=== PATIENT | female | born 1985 | race Caucasian/White ===

== ENCOUNTER 2018-08-05 16:02 | Emergency (ER) | payer MEDICAID, SELFPAY ==
[2018-08-05 16:03] VITALS: BP 162/81; PULSE 91; RESP 17; TEMP 36.6; O2SAT 97; BMI 36.1
--- NOTE | 2018-08-05 16:21 | EKG12_ITS ---
Test Reason : CP Blood Pressure : / mmHG Vent. Rate : 090 BPM Atrial Rate : 090 BPM P-R Int : 144 ms QRS Dur : 078 ms QT Int : 390 ms P-R-T Axes : 031 056 036 degrees QTc Int : 477 ms Normal sinus rhythm Normal ECG Confirmed by CHEVY TOUSSAINT, DARCY ([id number]), art editor EDITH CHOPRA ([id number]) on 08/07/2018 2:14:11 PM Referred By: CITLALI Confirmed By:ADRCY REECE MD
--- NOTE | 2018-08-05 16:30 | ED.VISSUMM ---
- ER Visit Summary Date of Service: 08/05/18 Chief Complaint: Chest pain History of Present Illness: The patient is a 33 F presenting with chest pain. Patient states this started 2 days ago. Pain was initially intermittent but has been constant since this morning. She has mild cough. She denies fever. She denies PE/DVT risk factors. She is a smoker. Denies other CAD risk factors. Her from an MS in March 2018. Physical Examination: Vitals are stable. Patient is afebrile. Alert no acute distress. HEENT exam is unremarkable. Neck is supple. Lungs are clear and equal bilaterally. Heart is regular rate and rhythm. Abdomen is soft nontender nondistended. Extremities are unremarkable. Skin is warm and dry. No focal neurologic deficit. Remainder of exam is unremarkable. Emergency Department Course and Treatment: Patient was given aspirin on arrival. EKG is sinus rhythm rate of 90 with no acute ischemic changes. Chest x-ray shows no acute process. CBC, chemistries unremarkable. Troponin is negative. She was given a GI cocktail. Delta troponin was obtained and is negative. On reevaluation, patient is resting comfortably. She is advised to follow-up with her primary care physician. Advised return to ED for worsening complaints. Disposition: Discharge home Impression: Atypical chest pain This note was generated with [employer] dictation software. It may contain incorrect words, spelling, and punctuation that were not noted in review of the chart prior to signing ED Disposition - Plan for ED Patient: Instructions: ED Chest Pain Atypical Unkn Cause Referrals: Shelia Souza MD [Primary Care Provider] -
--- NOTE | 2018-08-05 16:35 | RAD_ITS ---
STUDY: X-RAY CHEST REASON FOR EXAM: Female, 33 years old. Chest pain TECHNIQUE: Portable chest COMPARISON: None. FINDINGS: The lungs are clear and expanded. There is no demonstrated pleural abnormality. Normal size heart. Normal mediastinum and vicente. Normal visualized pulmonary arteries. Normal visualized aortic arch and descending thoracic aorta. Normal visualized thoracic spine. Normal visualized ribs, clavicles, and shoulders. There is no demonstrated abnormality of the visualized soft tissue structures of the upper abdomen. RAD/Chest 1 View (Portable) IMPRESSION: Normal x-ray examination of the chest. Electronically Signed: Willie Castillo, at 17:09 EST Tel , Service support ,
[2018-08-05] MEDS: Aspirin 81 MG TAB.CHEW 324 MG PO (16:42)
[2018-08-05 16:48] LABS: Absolute Lymphocyte Count 2.09 X10^3/ul (0.83-4.51); Absolute Neutrophil Count 5.2 X10^3/uL (2.0-7.7); Basophil# 0.02 X10^3/uL; Basophil% 0.3 % (0-1); Eosinophil# 0.21 X10^3/uL; Eosinophils% 2.6 % (0-5); Hematocrit 39.5 % (37-47); Hemoglobin 12.6 g/dl (12.0-15.0); Lymphocyte # 2.09 X10^3/ul (4.0); Lymphocyte % 26.1 % (19-41); Mean Corp Hgb Conc 31.9 g/gl (32-36); Mean Corpuscular Hgb 28.3 pg (27.0-32.0); Mean Corpuscular Volume 88.8 fL (81-99); Monocyte# 0.43 X10^3/uL; Monocyte% 5.4 % (0-10); Neutrophil # 5.24 X10^3/uL (2.7-7.7); Neutrophil % 65.5 % (47-70); Platelet Count 245 K/mm3 (150-450); RBC Distribution Width CV 15.4 % (11.6-14.6); Red Blood Count 4.45 M/mm3 (4.2-5.4)
[2018-08-05 16:49] LABS: POSITIVE COUNT NO; POSITIVE DIFFERENTIAL NO; POSITIVE MORPHOLOGY NO
[2018-08-05 17:06] LABS: Anion Gap 4 (5-15); BUN 9 mg/dL (7-18); BUN/Creat Ratio 8.6 RATIO (10-20); Calcium,Total 8.9 mg/dL (8.5-10.1); Chloride 111 mmol/L (98-107); Creatinine, Serum 1.05 mg/dL (0.55-1.02); EST Glomerular Filtration Rate 64 mL/min (>60); Est Glom Filt Rate - Afr Amer 78 mL/min (>60); Estimated Creatinine Clearance 57.51 ml/min; Glucose 90 mg/dL (74-106); Potassium 3.9 mmol/L (3.5-5.1); Sodium Level 140 mmol/L (136-145)
[2018-08-05] MEDS: Mag Hydrox/Al Hydrox/Simeth 30 ML UDC PO (17:36)
[2018-08-05 18:02] VITALS: BP 117/71; PULSE 77; RESP 23; O2SAT 96
[2018-08-05 19:06] VITALS: BP 109/67; PULSE 71; RESP 17; O2SAT 97
--- NOTE | 2018-08-05 20:14 | ED.DEP ---
ED Disposition - Plan for ED Patient: Instructions: ED Chest Pain Atypical Unkn Cause Referrals: Shelia Souza MD [Primary Care Provider] -
[2018-08-05 20:34] VITALS: BP 125/76; PULSE 83; RESP 24; O2SAT 96
== END 2018-08-05 20:35 | disposition home or self-care (01) ==
LOC: ED 16:27
PROVIDERS: Emergency Provider Emergency Medicine; Family Provider Internal Medicine; PCP Internal Medicine
DX: R07.89 Other chest pain (principal); R05 Cough; F17.200 Nicotine dependence, unspecified, uncomplicated; Z79.899 Other long term (current) drug therapy
CPT/HCPCS: 71045; 80048; 84484; 85025; 93005; 99285; A4216

== ENCOUNTER → 2024-02-22 | Outpatient (CLI) | payer BC, SELFPAY ==
[2024-02-22 11:26] LABS: Platelet Count 274 K/mm3 (150-450); RET-HE 31.3 pg (30-35); Reticulocyte Count 1.32 % (0.5-1.5)
[2024-02-22 11:27] LABS: Erythrocyte Sedimentation Rate 8 mm/hr (0-30)
[2024-02-22 11:54] LABS: CRP 5.26 mg/L (0.0-3.0); Ferritin 8 ng/mL (8-252); Iron Binding Capacity,Total 393 ug/dL (250-450); LDH 172 U/L (84-246)
[2024-02-25 16:09] LABS: Anti-Centromere B Ab <0.2 AI (0.0-0.9); Anti-Chromatin <0.2 AI (0.0-0.9); Anti-Jo <0.2 AI (0.0-0.9); Anti-Scleroderma-70 AB <0.2 AI (0.0-0.9); Anti-dsDNA Ab <1 IU/mL (0-9); Beef <0.10 kU/L (Class 0); Chocolate <0.10 kU/L (Class 0); Codfish <0.10 kU/L (Class 0); Corn <0.10 kU/L (Class 0); Egg, Whole <0.10 kU/L (Class 0); Milk (Cow) <0.10 kU/L (Class 0); Mussels <0.10 kU/L (Class 0); Peanut <0.10 kU/L (Class 0); Pork <0.10 kU/L (Class 0); RNP Ab <0.2 AI (0.0-0.9); SJOGREN'S Anti-SS-A test < 0.2 AI (0.0-0.9); SJOGREN'S Anti-SS-B test < 0.2 AI (0.0-0.9); Salmon <0.10 kU/L (Class 0); Shrimp <0.10 kU/L (Class 0); Smith Ab <0.2 AI (0.0-0.9); Soybean <0.10 kU/L (Class 0); Tuna <0.10 kU/L (Class 0); Wheat <0.10 kU/L (Class 0)
[2024-02-28 10:10] LABS: ACCA 18 units (0-90); ALCA 17 units (0-60); AMCA 7 units (0-100); Albumin 3.9 g/dL (2.9-4.4); Alpha-1-Globulins 0.2 g/dL (0.0-0.4); Alpha-2-Globulins 0.8 g/dL (0.4-1.0); Cytoplasmic Ab (C-ANCA) <1:20 titer (Neg:<1:20); Endomysial Antibody IgA Negative (Negative); Gamma Globulin 0.9 g/dL (0.4-1.8); Haptoglobin 177 mg/dL (33-278); Immunoglobulin A 138 mg/dL (87-352); Immunoglobulin E 9 IU/mL (6-495); Immunoglobulin G 890 mg/dL (586-1602); Immunoglobulin M 110 mg/dL (26-217); PROEL- TOTAL PROTEIN 6.8 g/dL (6.0-8.5); Perinuclear Ab (P-ANCA) <1:20 titer (Neg:<1:20); gASCA 18 units (0-50); t-Transglutaminase IgA <2 U/mL (0-3)
== END | disposition home or self-care (01) ==
LOC: LAB 10:10
PROVIDERS: PCP Student in an Organized Health Care Education/Training Program
DX: D50.9 Iron deficiency anemia, unspecified (principal); E07.9 Disorder of thyroid, unspecified; K62.5 Hemorrhage of anus and rectum
CPT/HCPCS: 36415; 82728; 82784; 82785; 83010; 83516; 83550; 83615; 84165; 85045; 85652; 86003; 86005; 86036; 86140; 86225; 86235; 86255; 86256; 86334; 86671

== ENCOUNTER 2024-03-14 10:57 | Day surgery (SDC) | payer BC, SELFPAY ==
[2024-03-14] VITALS (9 sets, daily range): BP systolic 84–100; BP diastolic 50–70; PULSE 46–67; RESP 16–20; TEMP 36.3–36.6; O2SAT 97–100; BMI 32.5
--- NOTE | 2024-03-14 11:52 | PRE.ANES_ITS ---
ASA Classification* ASA Classification ASA Classification: 2 Assessment & Plan Anesthesia* Anesthesia Assessment Anesthesia Assessment: Discussed sedation and/or anesthesia options, risks, benefits, and alternatives with patient/parents/legal guardian/POA. Questions invited. The patient/parents/legal guardian/POA seems to understand and agrees to proceed with anesthesia plan. Reviewed the physical assessment, medical history, allergy history and patient home medications list prior to surgery/procedure/anesthetic and documented any changes. Performed airway and anesthesia risk assessments. Anesthesia Type Anesthesia Type: MAC History Source History Obtained from:: Patient and Chart Anesthesia Focused Assessment* Temperature: 97.3 F Pulse Rate: 63 Blood Pressure: 100/70 Respiratory Rate: 16 Pulse Ox: 99 Oxygen Delivery Method: Room Air Airway Assessment Mouth opens: >3 cm Mallampati Score: I Teeth Condition: Caps/Crowns (Patient has crowns on front top 6 incisors. All tight.) Neck Range of motion (ROM): Full ROM Focused Labs Anesthesia Preop lab: CBC WBC 8.0 K/mm3 (4.4-11.0) 08/05/18 16:40 RBC 4.45 M/mm3 (4.2-5.4) 08/05/18 16:40 Hgb 12.6 g/dl (12.0-15.0) 08/05/18 16:40 Hct 39.5 % (37-47) 08/05/18 16:40 Plt Count 245 K/mm3 (150-450) 08/05/18 16:40 CHEMISTRY Potassium 3.9 mmol/L (3.5-5.1) 08/05/18 16:40 Sodium 140 mmol/L (136-145) 08/05/18 16:40 BUN 9 mg/dL (7-18) 08/05/18 16:40 Creatinine 1.05 mg/dL (0.55-1.02) H 08/05/18 16:40 Glucose 90 mg/dL (74-106) 08/05/18 16:40 COAG HCG, Quant 96245 mIU/mL (<9 non-preg) H 01/30/12 11:50 Urine Test Pending 03/14/24 11:20 Pre-Assessment Diagnosis/Proposed Procedure Planned Operative Procedure(s): CSCOPE Anesthesia History 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 When Was Last Pacemaker Check QUESTION #4 FULL TEXT: You/Your Family Experience fever (hyperthermia) with Anesthesia Last Oral Intake Last Oral intake: Last Oral Intake NPO since Meds taken in AM with sips of water? Meds patient instructed to take am of surgery Any additional information?: Yes NPO since: 09:00 (Patient finished prep at 9 AM.) PONV PONV - simplex printer installer: PONV - simplex printer installer Female Yes 03/08/24 10:30 HX of Motion Sickness No 03/08/24 10:30 HX of N/V After Surgery No 03/08/24 10:30 Non-Smoker No 03/08/24 10:30 Duration of Surgery greater No 03/08/24 10:30 than 60 minutes Number of Risk Factors 1 03/08/24 10:30 PONV Score Low Risk 03/08/24 10:30 Height & Weight Height & Weight: Anesthesia: Height & Weight Height 5 ft 1 in 03/14/24 11:24 Weight: 78 kg 03/14/24 11:24 Body Mass Index (BMI) 32.5 03/14/24 11:24 Respiratory Assessment Respiratory Assessment - simplex printer installer: Respiratory Tract Infection Hx - simplex printer installer Hx Respiratory Tract Infection No 03/08/24 10:30 STOP Sleep Apnea STOP Sleep Apnea - simplex printer installer: STOP Sleep Apnea - simplex printer installer Hx Hypertension No 03/08/24 10:30 Hx Sleep Apnea No 03/08/24 10:30 CPAP BIPAP Do you snore loudly (louder No 03/08/24 10:30 than talking or can be heard Do you often feel tired/ Yes 03/08/24 10:30 fatigued/ sleepy during daytime? Has anyone observed you stop No 03/08/24 10:30 breathing during sleep? STOP Results Negative 03/08/24 10:30 QUESTION #5 FULL TEXT : Do you snore loudly (louder than talking or can be heard through closed doors)? 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 Specify any problems Hx of Preganancy in last 3 No 03/08/24 10:30 Months Nurse Filling Out Transfusion DSCHRIBER 03/08/24 10:30 & Questions: Date: 03/08/24 03/08/24 10:30 Time: 10:32 03/08/24 10:30 Patient unable to answer at this time (ie. confused, unrespo /Reproduction History /Reproductive History - simplex printer installer: /Reproductive Hx- simplex printer installer Hx Now No 03/08/24 10:30 Gestational Age (in weeks): EDC: Hx Hx Para Hx Section SAB No 03/08/24 10:30 [facility] Medical History (Updated 03/08/24 @ 10:39 by Joan Donald) Low iron Easy bruising Restless legs Heartburn Smoker Shortness of breath on exertion History of edema History of echocardiogram History of stress test History of irregular heartbeat Katie's thyroiditis Vitamin D deficiency Rectal bleeding Iron deficiency anemia ADHD Concentration deficit ROSA (generalized anxiety disorder) Major depressive disorder Thyroid disease Home Medications ?Medication ?Instructions ?Recorded ?Last Taken ?Type levothyroxine 75 mcg tablet 75 mcg PO DAILY 08/03/22 Unknown History fluoxetine 40 mg capsule 40 mg PO DAILY #90 caps 10/05/23 Unknown Rx cholecalciferol (vitamin D3) 125 125 mcg PO DAILY 10/03/24 Unknown History mcg (5,000 unit) tablet (Vitamin D3) Allergy/AdvReac Type Severity Reaction Status Date / Time No Known Allergies Allergy Verified 03/14/24 11:23 Family History Other Alcoholism Anemia Anxiety Blood clot in vein Bowel disease Breast cancer CVA (cerebral vascular accident) Cancer Colon cancer Depression Diabetes Heart disease High cholesterol Hypertension Melanoma Myocardial infarction Thyroid disorder Surgical History (Updated 03/08/24 @ 10:38 by Joan Donald) H/O wisdom tooth extraction History of delivery History of tonsillectomy Social History (Updated 02/17/24 @ 13:27 by Ilsa Velez) Smoking Status: Current every day smoker tobacco type: cigarettes alcohol intake: current alcohol intake frequency: holidays/special occasions only what type of physical activity do you participate in: none Review of Systems (Anesthesia) ROS Narrative System reviewed and no additional complaints, except as documented.
--- NOTE | 2024-03-14 12:00 | COLBX_PTH ---
PATIENT: CINTHYA RÍOS LOC: EN U#:[id number] AGE/SX: 38/F ROOM: RE03/14/[address]: Dr. Kumar Bhatt DO : 1985 BED: DIS: 03/14/2024 SPEC #: [id number] RECD: 03/15/24 07:46 STATUS: JAMAL MIKE #: [id number] ELIZABETH: 03/14/24 12:[address]: Kumar Bhatt DEPT: SURGICAL PATHOLOGY RECD BY: Filiberto Zavala ENTERED: 03/15/24 09:31 SP TYPE: COLON BX LIZABETH DR: DO Leah Gibbons, LOSS PREVENTION ANALYST-C Tissues: A - Sigmoid colon biopsy B - Ileum, NOS C - COLON BIOPSY Procedures: Surgery Specimen Level IV HEADER OPERATION: Colonoscopy biopsy PRE-OP DIAGNOSIS: Rectal bleeding TISSUE SUBMITTED: A- Sigmoid polyp biopsy, B- Terminal ileum biopsy, C- Random colon biopsy MICROSCOPIC DIAGNOSIS A. Sigmoid colon polyp, biopsy: Fragments of hyperplastic polyp. B. Terminal ileum, biopsy: No pathologic change. See comment. C. Colon, random biopsy: No pathologic change. AM 03/16/2024 COMMENT B. Benign appearing lymphoid aggregates are present. MICROSCOPIC DESCRIPTION Slides are reviewed. GROSS DESCRIPTION A. Received in fixative is one container labeled with the patient's name and designated Sigmoid polyp biopsy. The specimen consists of multiple irregular fragments of light grant soft tissue that in aggregate measure 1.0 x 0.3 x 0.1 cm. The specimen is totally submitted in one cassette. B. Received in fixative is one container labeled with the patient's name and designated Terminal ileum biopsy. The specimen consists of two irregular fragments of light grant soft tissue that in aggregate measure 0.6 x 0.3 x 0.1 cm. The specimen is totally submitted in one cassette. C. Received in fixative is one container labeled with the patient's name and designated Random colonic biopsy. The specimen consists of multiple irregular fragments of light grant soft tissue that in aggregate measure 1.0 x 0.3 x 0.1 cm. The specimen is totally submitted in one cassette. 03/15/2024 TC:5 CPT:53648v9
--- NOTE | 2024-03-14 12:07 | HP.PCM_ITS ---
History and Physical Date of Admission: 03/14/24 Chief Complaint: referred by PCP for blood in stool Details: CINTHYA RÍOS, is a 38 F who presents to the office today for establishment with [facility] for complaints of rectal bleeding, alternating diarrhea with constipation, and concern for colon cancer. Reports that her grandfather had from colon cancer while she was in school. Denies parents/siblings having known colon cancer or precancerous endoscopy findings. Reports loose stools upon waking daily and then becomes more constipated at end of day. States presence of tenesmus. Blood seen in strands on outside of stool and while wiping. Has never noticed blood soiling her clothes. Denies fever, chills, nausea, vomiting, ab dominal pain, cramping, excessive belching/flatulence and bloating. States occasional heartburn for which a Tums is effective. Does report early satiety and poor appetite on most days. Previous lab work reviewed from PCP: hgb 11.6/ hct 34.8, iron 17, TSH 7.2. She reports being on levothyroxine since the sixth grade and having it increased only once and that was earlier this year. ROS Const Constitutional: Positive for anorexia, fatigue and decreased energy; No night sweats or abnormal sleep pattern Eyes Eyes: No change in vision ENT ENT: No abnormal hearing or difficulty swallowing Resp Respiratory: No cough Cardio Cardiology: No shortness of breath, dyspnea on exertion, generalized swelling or fast heart rate Gastro GI: Positive for abdominal pain, change in bowel habits, change in stool character, constipation, feeling full early, Blood in stool, loose stools and nausea/dyspepsia; No belching, bloating, coffee ground emesis, cramping, diarrhea, heartburn, difficulty swallowing, excessive flatus, incontinent of stools, Vomiting blood/hematemesis, Black,tarry stools, pain with swallowing or vomiting Genitourinary-Female: No difficulty urinating Musc Musculoskeletal: No joint pain Skin Skin: No yellowing of the eye or itchy eyes Neuro Neurology: No abnormal hearing Psych Psychiatric: No abnormal sleep pattern Endo Endocrine: Positive for fatigue; No cold intolerance or heat intolerance Aller/Imm Allergy/Immunologic: No food intolerance or itchy eyes Ibrahima/Lymp Hematologic/Lymphatic: No easy bleeding or easy bruising Exam Const General: cooperative, healthy appearing and comfortable Nutritional Appearance: overweight HENMT Head: normal to inspection Ears: hearing grossly normal bilaterally Nose: external nose normal Face and sinus: normal facial exam and face symmetric Eyes General: appearance normal, both eyes and all related structures Sclera: sclerae normal Neck Neck: normal visual inspection and full ROM Neck mass: No Chest Chest palpation & inspection: normal inspection of the chest Resp Effort & Inspection: normal respiratory effort, able to speak in complete sentences and symmetric chest movement GI Inspection: normal to inspection Palpation: soft and no hepatosplenomegaly Skin General: no rashes or lesions noted and pallor Neuro General: patient alert, patient awake and patient oriented x3 Cognition: normal cognition Speech: speech normal Gait: normal gait Extrem General: full ROM Psych Appearance: well kempt Assessment and Plan Assessment and Plan (1) Rectal bleeding: Status: Acute Plan: CINTHYA RÍOS, is a 38 F who presents to the office today for establishment with [facility] for complaints of rectal bleeding, alternating diarrhea with constipation, and concern for colon cancer. Differential diagnoses include: internal hemorrhoids, IBS-M, IBD. * order blood for IBS/D panel, immunology, iron workup * order stool for occult, enteric, inflammatory markers * order GET for c/o early satiety * order colonoscopy to investigate rectal bleeding * call with results * follow up appt in 3 months(2) Encounter for screening for malignant neoplasm of colon: Status: Acute Plan: See above. (3) Iron deficiency anemia: Status: Acute Qualifiers: Iron deficiency anemia type: unspecified iron deficiency Qualified Code(s): D50.9 - Iron deficiency anemia, unspecified Plan: See above. Orders: Orders Gastric Emptying Study Today D50.9 - Iron deficiency anemia, unspecified, E07.9 - Disorder of thyroid, unspecified, K62.5 - Hemorrhage of anus and rectum Allergen, Food Profile 14 Today D50.9 - Iron deficiency anemia, unspecified, E07.9 - Disorder of thyroid, unspecified, K62.5 - Hemorrhage of anus and rectum CRP Today D50.9 - Iron deficiency anemia, unspecified, E07.9 - Disorder of thyroid, unspecified, K62.5 - Hemorrhage of anus and rectum Immunoglobulins G/A/M/E Today D50.9 - Iron deficiency anemia, unspecified, E07.9 - Disorder of thyroid, unspecified, K62.5 - Hemorrhage of anus and rectum SEJAL Comprehensive Panel Today D50.9 - Iron deficiency anemia, unspecified, E07.9 - Disorder of thyroid, unspecified, K62.5 - Hemorrhage of anus and rectum ENTERIC PATHOGEN PANEL STOOL Today D50.9 - Iron deficiency anemia, unspecified, E07.9 - Disorder of thyroid, unspecified, K62.5 - Hemorrhage of anus and rectum LDH Today D50.9 - Iron deficiency anemia, unspecified, E07.9 - Disorder of thyroid, unspecified, K62.5 - Hemorrhage of anus and rectum ANCA Today D50.9 - Iron deficiency anemia, unspecified, E07.9 - Disorder of thyroid, unspecified, K62.5 - Hemorrhage of anus and rectum Erythrocyte Sed Rate Today D50.9 - Iron deficiency anemia, unspecified, E07.9 - Disorder of thyroid, unspecified, K62.5 - Hemorrhage of anus and rectum Calprotectin, Stool Today D50.9 - Iron deficiency anemia, unspecified, E07.9 - Disorder of thyroid, unspecified, K62.5 - Hemorrhage of anus and rectum Pancreatic Elastase, Fecal Today D50.9 - Iron deficiency anemia, unspecified, E07.9 - Disorder of thyroid, unspecified, K62.5 - Hemorrhage of anus and rectum Giardia Lamblia, Stool EIA Today D50.9 - Iron deficiency anemia, unspecified, E07.9 - Disorder of thyroid, unspecified, K62.5 - Hemorrhage of anus and rectum Stool Lactoferrin/WBC Today D50.9 - Iron deficiency anemia, unspecified, E07.9 - Disorder of thyroid, unspecified, K62.5 - Hemorrhage of anus and rectum CDIFF (PCR) Today D50.9 - Iron deficiency anemia, unspecified, E07.9 - Disorder of thyroid, unspecified, K62.5 - Hemorrhage of anus and rectum IBD Expanded Profile Today D50.9 - Iron deficiency anemia, unspecified, E07.9 - Disorder of thyroid, unspecified, K62.5 - Hemorrhage of anus and rectum Celiac Disease Profile Today D50.9 - Iron deficiency anemia, unspecified, E07.9 - Disorder of thyroid, unspecified, K62.5 - Hemorrhage of anus and rectum PILAR + Protein Elect, Serum Today D50.9 - Iron deficiency anemia, unspecified, E07.9 - Disorder of thyroid, unspecified, K62.5 - Hemorrhage of anus and rectum Ferritin Today D50.9 - Iron deficiency anemia, unspecified, E07.9 - Disorder of thyroid, unspecified, K62.5 - Hemorrhage of anus and rectum Haptoglobin Today D50.9 - Iron deficiency anemia, unspecified, E07.9 - Disorder of thyroid, unspecified, K62.5 - Hemorrhage of anus and rectum Iron Binding Capacity,Total Today D50.9 - Iron deficiency anemia, unspecified, E07.9 - Disorder of thyroid, unspecified, K62.5 - Hemorrhage of anus and rectum Retic Panel Count Today D50.9 - Iron deficiency anemia, unspecified, E07.9 - Disorder of thyroid, unspecified, K62.5 - Hemorrhage of anus and rectum Stool Occult Blood iFOB Today K62.5 - Hemorrhage of anus and rectum I have examined the patient and the H&P has been reviewed. There are no clinical changes since date of exam.
--- NOTE | 2024-03-14 12:48 | PCM.POST.ANE ---
Anesthesia: Postop Eval I Current Vital Signs Temperature: 97.5 F Pulse Rate: 67 Blood Pressure: 90/52 Respiratory Rate: 20 Pulse Ox: 99 Assessment Airway patent: Yes Spontaneous unlabored respirations: Yes nausea: No Vomiting: No Anesthesia Complication: No Fluid Hydration Crystalloid volume administer (ml): 10 Total IV fluid infused: 10 Progress Note Anesthesia document: Postop Eval 1 completed: Yes
--- NOTE | 2024-03-14 12:50 | OP.COLON_ITS ---
Patient Name: Evelina Hearn Procedure Date: 03/14/2024 12:15 PM Date of : 1985 Age: 38 Procedure: Colonoscopy Indications: Generalized abdominal pain, Clinically significant diarrhea of unexplained origin Providers: Kumar Bhatt DO Referring MD: Kumar Bhatt DO Medicines: Monitored Anesthesia Care Patient Profile: This is a 38 year old female. Refer to note in patient chart for documentation of history and physical. Last Colonoscopy: none. The patient's first colonoscopy is today. Complications: No immediate complications. Procedure: Pre-Anesthesia Assessment: - Prior to the procedure, a History and Physical was performed, and patient medications and allergies were reviewed. The patient is competent. The risks and benefits of the procedure and the sedation options and risks were discussed with the patient. All questions were answered and informed consent was obtained. Patient identification and proposed procedure were verified by the physician in the pre-procedure area. Mental Status Examination: alert and oriented. Airway Examination: normal oropharyngeal airway and neck mobility. Respiratory Examination: clear to auscultation. CV Examination: normal. Prophylactic Antibiotics: The patient does not require prophylactic antibiotics. Prior Anticoagulants: The patient has taken no anticoagulant or antiplatelet agents except for NSAID medication. ASA Grade Assessment: II - A patient with mild systemic disease. After reviewing the risks and benefits, the patient was deemed in satisfactory condition to undergo the procedure. The anesthesia plan was to use monitored anesthesia care (MAC). Immediately prior to administration of medications, the patient was re-assessed for adequacy to receive sedatives. The heart rate, respiratory rate, oxygen saturations, blood pressure, adequacy of pulmonary ventilation, and response to care were monitored throughout the procedure. The physical status of the patient was re-assessed after the procedure. After I obtained informed consent, the scope was passed under direct vision. Throughout the procedure, the patient's blood pressure, pulse, and oxygen saturations were monitored continuously. The Colonoscope was introduced through the anus and advanced to the terminal ileum. The colonoscopy was performed without difficulty. The patient tolerated the procedure well. The quality of the bowel preparation was adequate. The terminal ileum, ileocecal valve, appendiceal orifice, and rectum were photographed. Scope In: 12:23:09 PM Scope Withdrawal Time 0 hours 12 minutes 44 seconds Scope Out: 12:41:57 PM Total Procedure Duration Time 0 hours 18 minutes 48 seconds Findings: The perianal and digital rectal examinations were normal. Two sessile polyps were found in the sigmoid colon. The polyps were 5 mm in size. These polyps were removed with a jumbo cold forceps. Resection and retrieval were complete. Verification of patient identification for the specimen was done. Estimated blood loss was minimal. The colon (entire examined portion) appeared normal. Biopsies for histology were taken with a cold forceps from the right colon, left colon, sigmoid colon and rectum for evaluation of microscopic colitis. A patchy area of the terminal ileum was congested. Biopsies were taken with a cold forceps for histology. Verification of patient identification for the specimen was done. Estimated blood loss was minimal. Impression: - Two 5 mm polyps in the sigmoid colon, removed with a jumbo cold forceps. Resected and retrieved. - The entire examined colon is normal. Biopsied. - Congested mucosa in the terminal ileum. Biopsied. Recommendation: - Discharge patient to home. - Resume previous diet. - Continue present medications. - Await pathology results. - Repeat colonoscopy in 5 years for surveillance based on pathology results. - Return to GI office. Procedure Code(s): --- Professional --- 87183, Colonoscopy, flexible; with biopsy, single or multiple CPT copyright 2021 [employer]. All rights reserved. The codes documented in this report are preliminary and upon analyst business analysis review may be revised to meet current compliance requirements. Kumar Bhatt DO 03/14/2024 12:49:41 PM This report has been signed electronically. Number of Addenda: 0 Note Initiated On: 03/14/2024 12:15 PM
--- NOTE | 2024-03-14 12:50 | OP.CCLET_ITS ---
03/14/2024 Estuardo Oleary Do Re : Colonoscopy procedure for Evelina Hearn Dear Mamta This procedure was performed on Thursday, March 14, 2024. My impressions and recommendations are as follows: Impressions : - Two 5 mm polyps in the sigmoid colon, removed with a jumbo cold forceps. Resected and retrieved. - The entire examined colon is normal. Biopsied. - Congested mucosa in the terminal ileum. Biopsied. Recommendations : - Discharge patient to home. - Resume previous diet. - Continue present medications. - Await pathology results. - Repeat colonoscopy in 5 years for surveillance based on pathology results. - Return to GI office. My findings are described in the full procedure note, which is enclosed. If I can be of further assistance, please feel free to contact me at . Sincerely, Kumar Bhatt, 03/14/2024 12:49:41 PM This report has been signed electronically.
--- NOTE | 2024-03-14 13:53 | POSTOPAN2_ITS ---
Anesthesia Postop Eval I Sum Postop Eval Completion status Anesthesia document: Postop Eval 1 completed: Yes Anesthesia Postop Eval I Summary Anesthesia Postop Eval I Summary: Anesthesia Postop Eval I: Assessment Summary Airway patent Yes 03/14/24 12:48 PAINTING [email or web address] Spontaneous unlabored Yes 03/14/24 12:48 PAINTING [email or web address] respirations Mental status nausea No 03/14/24 12:48 PAINTING [email or web address] Vomiting No 03/14/24 12:48 PAINTING [email or web address] Anesthesia Postop Eval I: Fluid Summary Crystalloid volume administer 10 03/14/24 12:48 PAINTING [email or web address] (ml) Colloids volume administered ( ml) Blood Product volume administered (ml) Total IV fluid infused 10 03/14/24 12:48 PAINTING [email or web address] Anesthesia Postop Eval I: Summary Notes Anesthesia Complication No 03/14/24 12:48 PAINTING [email or web address] Anesthesia Complication Comment: Post-operative progress note Anesthesia: Postop Eval II Evaluation Mental status: Awake and Calm Pain Level: 0 nausea: No Vomiting: No Complications Anesthesia Complication: No
--- NOTE | 2024-03-14 13:53 | PCM.POSTANE2 ---
Anesthesia Postop Eval I Sum Postop Eval Completion status Anesthesia document: Postop Eval 1 completed: Yes Anesthesia Postop Eval I Summary Anesthesia Postop Eval I Summary: Anesthesia Postop Eval I: Assessment Summary Airway patent Yes 03/14/24 12:48 MANAGER [email or web address] [email or web address] Spontaneous unlabored Yes 03/14/24 12:48 MANAGER OF INFORMATION.CSIR respirations Mental status nausea No 03/14/24 12:48 MANAGER OF INFORMATION.CSIR Vomiting No 03/14/24 12:48 MANAGER OF INFORMATION.CSIR Anesthesia Postop Eval I: Fluid Summary Crystalloid volume administer 10 03/14/24 12:48 MANAGER OF INFORMATION.CSIR (ml) Colloids volume administered ( ml) Blood Product volume administered (ml) Total IV fluid infused 10 03/14/24 12:48 MANAGER OF INFORMATION.CSIR Anesthesia Postop Eval I: Summary Notes Anesthesia Complication No 03/14/24 12:48 MANAGER OF INFORMATION.CSIR Anesthesia Complication Comment: Post-operative progress note Anesthesia: Postop Eval II Evaluation Mental status: Awake and Calm Pain Level: 0 nausea: No Vomiting: No Complications Anesthesia Complication: No
[2024-03-17 00:07] LABS: Pancreatic Elastase, Fecal > 800 (>200)
[2024-03-17 05:10] LABS: Calprotectin, Stool 22 ug/g (0-120)
== END 2024-03-14 14:06 | disposition home or self-care (01) ==
LOC: EN 11:00 → AC 11:02
PROVIDERS: PCP Student in an Organized Health Care Education/Training Program; Referring Provider Student in an Organized Health Care Education/Training Program; Visit Provider Internal Medicine Gastroenterology
PROC: 0DJD8ZZ Inspection of Lower Intestinal Tract, Via Natural or Artificial Opening Endoscopic (ICD-10-PCS; CPT 45378; principal; 2024-03-14 11:55)
DX: K62.5 Hemorrhage of anus and rectum (principal); K63.89 Other specified diseases of intestine; K63.5 Polyp of colon; D50.9 Iron deficiency anemia, unspecified; F32.9 Major depressive disorder, single episode, unspecified; F41.1 Generalized anxiety disorder; E06.3 Autoimmune thyroiditis; E55.9 Vitamin D deficiency, unspecified; F17.200 Nicotine dependence, unspecified, uncomplicated; Z79.899 Other long term (current) drug therapy
CPT/HCPCS: 45380; 82274; 82653; 83630; 83993; 87177; 87209; 87329; 87493; 87506; 88305; A4216; J2405